=== PATIENT | female | born 1980 | race Caucasian/White ===

== ENCOUNTER 2016-09-09 08:55 | Day surgery (SDC) | payer BC, OTHER ==
[2016-09-08 12:20] VITALS: BMI 37.8
[~2016-09-09] VITALS: Ht 162.6 cm; Wt 111.7 kg
[2016-09-09] VITALS (11 sets, daily range): BP systolic 104–139; BP diastolic 55–84; PULSE 78–110; RESP 11–23; Ht 162.6 cm; Wt 111.7 kg
[~2016-09-09 08:55] MED LIST: ROCURONIUM 50 MG INJ ONE
--- NOTE | 2016-09-09 10:03 | HPN ---
Date/Time of Note Date/Time of Note DATE: 09/09/16 TIME: 10:03 Interval H&P Admission Note Pt. seen H&P reviewed: No system changes DAGOBERTO BANERJEE MD Sep 09, 2016 10:03
[2016-09-09] MEDS ORDERED: ROCURONIUM 50 MG INJ ONE (10:07)
[2016-09-09] MEDS ORDERED: HYDROmorphONE 2 MG/ML SYG ONE (10:07)
[2016-09-09] MEDS ORDERED: MIDAZOLAM 1 MG/ML 2 ML INJ ONE (10:07)
[2016-09-09] MEDS ORDERED: PROPOFOL 20 ML ONE (10:07)
[2016-09-09] MEDS ORDERED: KETOROLAC 30 MG INJ ONE (10:08)
[2016-09-09] MEDS ORDERED: METOCLOPRAMIDE 10 MG INJ ONE (10:08)
[2016-09-09] MEDS ORDERED: ROPIVACAINE 0.2% 20 ML VIAL ONE (10:08)
[2016-09-09] MEDS ORDERED: ROPIVACAINE 0.5 % 30 ML VIAL ONE (10:08)
[2016-09-09] MEDS ORDERED: POLYMYXIN/BACITRACIN 1L IRRIG ONE (10:34)
[2016-09-09] MEDS ORDERED: POVIDONE IODINE 10% 28.4 GM OINT ONE (10:34)
[2016-09-09] MEDS ORDERED: POLYMYXIN/BACITRACIN 1L IRRIG IRR ONE (12:50)
[2016-09-09] MEDS ORDERED: FENTAnyl 50 MCG/ML VIAL ONE (13:48)
[2016-09-09] MEDS ORDERED: CEFAZOLIN 1 GM INJ ONE (13:48)
[2016-09-09] MEDS ORDERED: MEPERIDINE 25 MG INJ IV PRN (14:00)
[2016-09-09] MEDS ORDERED: ONDANSETRON 4 MG INJ IV PRN (14:00)
[2016-09-09] MEDS ORDERED: METOCLOPRAMIDE 10 MG INJ IV PRN (14:00)
[2016-09-09] MEDS ORDERED: OXYCODONE/ACETAMINOPHEN (5/325) TAB PO PRN ×2 (14:00)
[2016-09-09] MEDS ORDERED: HYDROmorphONE (0.2 MG/ML) 10ML SYG IV PRN ×3 (14:00)
[2016-09-09] MEDS ORDERED: DIPHENHYDRAMINE 50 MG INJ IV PRN (14:00)
[2016-09-09] MEDS ORDERED: morphine 10 MG INJ IV PRN (14:30)
[2016-09-09] MEDS ORDERED: morphine 2 MG INJ IV PRN (14:30)
--- NOTE | 2016-09-09 17:05 | OPR ---
Date/Time of Note Date/Time of Note DATE: 09/09/16 TIME: 16:58 Operative Report Procedure Date: Sep 09, 2016 Preoperative Diagnosis 1.right ankle trimalleolar ankle fracture Postoperative Diagnosis 1.right ankle trimalleolar ankle fracture 2. right ankle loose body Operation Performed 1.right ankle arthroscopy with extensive debridement 2.right ankle arthroscopy with loose body removal 3.right ankle open reduction internal position of the medial and lateral malleolus in the setting of a trimalleolar ankle fracture Surgeon: DAGOBERTO BANERJEE MD Account Executive Key Accounts: ROCIO VALDERRAMA MD Anesthesia: general, other (regional block anesthesia with an abductor and popliteal block) Tourniquet Time: 100 minutes Estimated Blood Loss: 10 - 50 ml's Specimens None Complications: None Pt Condition Post Procedure: stable Disposition: PACU Indications Patient is a 36-year-old female sustained a trimalleolar ankle fracture and was indicated for surgery given the displacement and fracture type. Patient was when the risks and benefits of surgery including but not limited to infection, bleeding, loss of limb and loss of life, need for future surgery, risk of blood clot, risk of anesthesia. Patient also was informed that she may sustain ankle arthritis in the future due to this ankle fracture which she acknowledged. Procedure Description Patient's correct extremity was marked in the preoperative holding area and confirmed with the patient via both consent and by patient. Patient was then brought back into the operative theater, placed supine on operative table and given preoperative anesthesia and preoperative antibiotics. Tourniquet was placed on the operative examination thigh non-sterilely. Patient was then given preoperative antibiotics and then the operative thigh was secured onto a thigh pinedo flexed and all areas were well padded. Superficial peroneal nerve branches were marked appropriately. The ankle was then prepped and draped in normal sterile fashion. Time-out was taken. All parties were in agreement that this was correct patient and extremity and procedure. A soft-tissue distraction strap was applied across the ankle and a soft tissue distraction was then placed across ankle at approximately 25 pounds of force. Attention was initially turned to the ankle joint. Using a typical anteromedial and anterolateral and posterior lateral portals with care to avoid any injury to the neurovascular structures. A 21-point ankle exam was completed revealing significant extensive synovitis and blood coagulation in the ankle with significant synovitis specifically seen in the anterolateral and anterior medial ankle gutter and a hemorrhagic nodule seen in the lateral gutter as well. Significant scar tissue was thoroughly debrided. A loose body measuring possibly 1 cm was seen in the soft tissue and removed from the posterior lateral aspect of the ankle. Lateral malleolus, posterior malleolus and medial malleolus fracture was seen and debrided. All significant scar tissue and hematoma was thoroughly debrided. The ankle was thoroughly irrigated with saline. All wounds were closed with 4- 0 nylon in vertical mattress fashion and the attention was then turned to the medial aspect of the ankle. Gloves were changed and patient was reprepped and draped and then Esmarch was brought up and tourniquet was brought up to 250 mmHg. Incision was made over the distal fibula and this was taken down to the fracture site. The fracture site was thoroughly irrigated and hematoma was removed. The fracture was then reduced and held in position and shown we will reduced in both AP lateral and oblique view. 2 - 2.7 lag screws were placed from anterior to posterior at the fracture site to obtain interfragmentary compression. A Arthrex distal fibular locking plate was then placed over the fracture and fixed proximally and distally. Proximally this was fixed with cortical screws and distally with locking screws. Attention was then turned to the medial malleolus and incision was made over the medial malleolus. Fracture was identified hematoma was removed and fracture was then reduced and held in proper position with 2 K wires and then 2 x 4.0 partially threaded screws with washers were placed in a lag type fashion to achieve interfragmentary compression at the medial malleolus. The fracture was shown to be well reduced with AP and lateral position and given the small size of the posterior malleolus fracture was satisfactory not need to be fixed open, given that it appeared well reduced. At this time it a manual x-rays external rotation stress test was performed and there was no gapping is seen at the syndesmosis. The fracture was shown to be again it well reduced and out to excellent length, alignment and rotation. The wound was then irrigated thoroughly with normal saline and then the remainder of the wound was closed with 2-0 Vicryl followed by 3-0 Monocryl followed by 4-0 nylon in a vertical mattress fashion. A compression dressing was applied with Xeroform, Betadine ointment 4 x 4's and ABDs and the patient was placed into a well-padded short leg splint with 5 ABDs in neutral position. Patient tolerated procedure well and taken to recovery room in stable condition. At the end of the procedure, all sponge and needle counts were correct. Asst. note: An orthopedic surgeon was needed as an speech language pathologist assistant for this case due to the complexity of this case. The speech language pathologist assistant performed retraction and alignment of the fracture and assisted in reduction with ankle was being held into proper position while drilling was performed. Also and this was necessary to aid in fixation of the fracture and for reduction. Without a orthopedic surgeon who is an expert in surgery assisting in this case the case to be a lot longer and more complex. Thus should be compensated accordingly DAGOBERTO BANERJEE MD Sep 09, 2016 17:05
--- NOTE | 2016-09-10 07:37 | RADRPT ---
PROCEDURE: X-ray fluoroscopy guidance CLINICAL INDICATION: Injury, pain TECHNIQUE: Fluoroscopic guidance was utilized for right ankle ORIF. COMPARISON: None available FINDINGS: Fluoroscopic guidance was provided. 38.1 seconds of fluoroscopy time was utilized for the procedure . 15 images were obtained during the procedure in progress. IMPRESSION: 1. X-ray fluoroscopic guidance, as above. RPTAT: QQ .Quan Rm MD, MD Date Time Electronically viewed and signed by .Quan Rm MD, on 09/10/2016 07:37 .R/
== END 2016-09-09 17:30 | disposition home or self-care (01) ==
LOC: SDS 08:55
PROVIDERS: ATTEND Orthopaedic Surgery
DX: S82.851D Displaced trimalleolar fracture of right lower leg, subsequent encounter for closed fracture with routine healing (principal); X58.XXXD Exposure to other specified factors, subsequent encounter; E66.01 Morbid (severe) obesity due to excess calories; Z68.41 Body mass index [BMI] 40.0-44.9, adult; M24.071 Loose body in right ankle
CPT/HCPCS: 27822; 29898; 73610; 84703; C1713; J0690; J1170; J1885; J2250; J2765; J2795; J3010; Z7512; Z7610